=== PATIENT | male | born 1945 | race Caucasian/White ===

== ENCOUNTER 2016-09-20 08:15 | Outpatient (CLI) | payer MEDICARE, OTHER | END 2016-09-20 08:16 | disposition home or self-care (01) | DX: E78.2 Mixed hyperlipidemia (principal); G40.309 Generalized idiopathic epilepsy and epileptic syndromes, not intractable, without status epilepticus; Z79.899 Other long term (current) drug therapy ==

== ENCOUNTER 2017-12-02 08:00 | Outpatient (CLI) | payer MEDICARE, OTHER ==
[2017-12-02 12:51] LABS: BASOPHILS # (AUTO) 0.1 10^3/uL (0.0-0.1); BASOPHILS % (AUTO) 2.2 %; EOSINOPHILS # (AUTO) 0.2 10^3/uL (0.0-0.7); EOSINOPHILS % (AUTO) 6.2 %; HGB - HEMOGLOBIN 14.4 g/dL (14.0-18.0); LYMPHOCYTES # (AUTO) 0.9 10^3/uL (1.5-3.5); LYMPHOCYTES % (AUTO) 22.5 %; MEAN CORPUSCULAR HEMOGLOBIN 30.9 pg (27.0-31.0); MEAN PLATELET VOLUME 8.9 fL (7.4-11.4); MONOCYTES # (AUTO) 0.4 10^3/uL (0.0-1.0); MONOCYTES % (AUTO) 10.5 %; NEUTROPHILS # (AUTO) 2.3 10^3/uL (1.5-6.6); NEUTROPHILS % (AUTO) 58.6 %; PLT - PLATELET COUNT 199 10^3/uL (130-450); RED BLOOD COUNT 4.67 10^6/uL (4.70-6.10); RED CELL DISTRIBUTION WIDTH 12.1 % (12.0-15.0); WHITE BLOOD COUNT 3.9 x10^3/uL (4.8-10.8)
[2017-12-02 13:14] LABS: ALBUMIN 4.3 g/dL (3.2-5.5); ALBUMIN/GLOBULIN RATIO 1.6 (1.0-2.2); ALKALINE PHOSPHATASE 75 IU/L (42-121); ALT ALANINE AMINOTRANSFERASE 20 IU/L (10-60); AST ASPARTATE AMINOTRANSFERASE 18 IU/L (10-42); BILIRUBIN,TOTAL 0.7 mg/dL (0.2-1.0); BUN - BLOOD UREA NITROGEN 18 mg/dL (6-20); CARBON DIOXIDE - CO2 29 mmol/L (21-32); CHLORIDE 105 mmol/L (101-111); CHOL/HDL RATIO 5.2 (<5.0); CHOLESTEROL 173 mg/dL; CREATININE 0.8 mg/dL (0.6-1.2); GFR - MDRD 94 (>89); GLUCOSE 95 mg/dL (70-100); HDL CHOLESTEROL 33 mg/dL; LDL CHOLESTEROL,CALCULATED 98 mg/dL; SODIUM 139 mmol/L (135-145); VLDL CHOLESTEROL 42 mg/dL
== END 2017-12-02 08:01 | disposition home or self-care (01) ==
LOC: LAB.R 08:00
PROVIDERS: ATTEND Internal Medicine
DX: R56.9 Unspecified convulsions (principal); E78.5 Hyperlipidemia, unspecified; M19.90 Unspecified osteoarthritis, unspecified site; D33.3 Benign neoplasm of cranial nerves; Z12.5 Encounter for screening for malignant neoplasm of prostate
CPT/HCPCS: 80053; 80061; 85025; G0103; 83721; 84153

== ENCOUNTER 2018-12-29 08:06 | Outpatient (CLI) | payer MEDICARE, OTHER ==
[2018-12-29 08:45] LABS: BASOPHILS # (AUTO) 0.1 10^3/uL (0.0-0.1); BASOPHILS % (AUTO) 1.6 %; EOSINOPHILS # (AUTO) 0.2 10^3/uL (0.0-0.7); EOSINOPHILS % (AUTO) 5.1 %; LYMPHOCYTES # (AUTO) 0.9 10^3/uL (1.5-3.5); LYMPHOCYTES % (AUTO) 23.3 %; MEAN CORPUSCULAR HEMOGLOBIN 30.1 pg (27.0-31.0); MEAN CORPUSCULAR VOLUME 91.2 fL (80.0-94.0); MEAN PLATELET VOLUME 8.2 fL (7.4-11.4); MONOCYTES # (AUTO) 0.3 10^3/uL (0.0-1.0); MONOCYTES % (AUTO) 8.6 %; NEUTROPHILS # (AUTO) 2.4 10^3/uL (1.5-6.6); NEUTROPHILS % (AUTO) 61.4 %; PLT - PLATELET COUNT 190 10^3/uL (130-450); RED BLOOD COUNT 4.64 10^6/uL (4.70-6.10); RED CELL DISTRIBUTION WIDTH 12.8 % (12.0-15.0); WHITE BLOOD COUNT 3.9 x10^3/uL (4.8-10.8)
[2018-12-29 09:02] LABS: ALBUMIN 4.2 g/dL (3.2-5.5); ALBUMIN/GLOBULIN RATIO 1.4 (1.0-2.2); ALKALINE PHOSPHATASE 69 IU/L (42-121); ALT ALANINE AMINOTRANSFERASE 19 IU/L (10-60); AST ASPARTATE AMINOTRANSFERASE 15 IU/L (10-42); BILIRUBIN,TOTAL 0.7 mg/dL (0.2-1.0); BUN - BLOOD UREA NITROGEN 18 mg/dL (6-20); CALCIUM 9.1 mg/dL (8.5-10.3); CARBON DIOXIDE - CO2 27 mmol/L (21-32); CHLORIDE 105 mmol/L (101-111); CHOL/HDL RATIO 4.3 (<5.0); CHOLESTEROL 168 mg/dL; CREATININE 0.9 mg/dL (0.6-1.2); GFR - MDRD 82 (>89); GLUCOSE 109 mg/dL (70-100); HDL CHOLESTEROL 39 mg/dL; LDL CHOLESTEROL,CALCULATED 88 mg/dL; LDL/HDL RATIO 2.3 (<3.6); SODIUM 141 mmol/L (135-145); TOTAL PROTEIN 7.1 g/dL (6.7-8.2); VLDL CHOLESTEROL 41 mg/dL
== END 2018-12-29 08:07 | disposition home or self-care (01) ==
LOC: LAB 08:06
PROVIDERS: ATTEND Family Medicine
DX: R56.9 Unspecified convulsions (principal); D33.3 Benign neoplasm of cranial nerves
CPT/HCPCS: 36415; 80053; 80061; 83721; 85025

== ENCOUNTER 2021-04-03 08:04 | Outpatient (CLI) | payer MEDICARE, OTHER ==
[2021-04-03 08:30] LABS: BASOPHILS # (AUTO) 0.1 10^3/uL (0.0-0.1); EOSINOPHILS # (AUTO) 0.2 10^3/uL (0.0-0.7); EOSINOPHILS % (AUTO) 4.3 %; HCT - HEMATOCRIT 45.4 % (42.0-52.0); HGB - HEMOGLOBIN 14.5 g/dL (14.0-18.0); LYMPHOCYTES % (AUTO) 25.1 %; MEAN CORPUSCULAR HEMOGLOBIN 30.6 pg (27.0-31.0); MEAN CORPUSCULAR HGB CONC 31.9 g/dL (32.0-36.0); MEAN CORPUSCULAR VOLUME 95.8 fL (80.0-94.0); MEAN PLATELET VOLUME 10.1 fL (7.4-11.4); MONOCYTES # (AUTO) 0.4 10^3/uL (0.0-1.0); MONOCYTES % (AUTO) 10.8 %; NEUTROPHILS # (AUTO) 2.3 10^3/uL (1.5-6.6); NEUTROPHILS % (AUTO) 56.8 %; PLT - PLATELET COUNT 209 10^3/uL (130-450); RED BLOOD COUNT 4.74 10^6/uL (4.70-6.10); RED CELL DISTRIBUTION WIDTH 11.6 % (12.0-15.0)
[2021-04-03 08:47] LABS: ALBUMIN 4.3 g/dL (3.2-5.5); ALBUMIN/GLOBULIN RATIO 1.6 (1.0-2.2); ALKALINE PHOSPHATASE 72 IU/L (42-121); ALT ALANINE AMINOTRANSFERASE 19 IU/L (10-60); AST ASPARTATE AMINOTRANSFERASE 15 IU/L (10-42); BILIRUBIN,TOTAL 0.9 mg/dL (0.2-1.0); BUN - BLOOD UREA NITROGEN 17 mg/dL (6-20); CALCIUM 9.2 mg/dL (8.5-10.3); CARBON DIOXIDE - CO2 28 mmol/L (21-32); CHLORIDE 105 mmol/L (101-111); CHOL/HDL RATIO 5.4 (<5.0); CHOLESTEROL 172 mg/dL; GFR - MDRD 72 (>89); GLUCOSE 110 mg/dL (70-100); HDL CHOLESTEROL 32 mg/dL; LDL CHOLESTEROL,CALCULATED 94 mg/dL; LDL/HDL RATIO 2.9 (<3.6); POTASSIUM 4.9 mmol/L (3.5-5.0); SODIUM 142 mmol/L (135-145); TRIGLYCERIDES 232 mg/dL; VLDL CHOLESTEROL 46 mg/dL
[2021-04-03 08:58] LABS: THYROID STIMULATING HORMONE 1.96 uIU/mL (0.34-5.60)
[2021-04-03 10:42] LABS: ESTIMATED AVERAGE GLUCOSE 100 mg/dL (70-100); HEMOGLOBIN A1c% 5.1 % (4.27-6.07)
== END 2021-04-03 08:05 | disposition home or self-care (01) ==
LOC: LAB 08:04
PROVIDERS: ATTEND Family Medicine
DX: G40.909 Epilepsy, unspecified, not intractable, without status epilepticus (principal); E78.5 Hyperlipidemia, unspecified; R73.9 Hyperglycemia, unspecified
CPT/HCPCS: 36415; 80053; 80061; 83036; 83721; 84443; 85025

== ENCOUNTER 2023-03-12 08:04 | Outpatient (CLI) | payer MEDICARE, OTHER ==
[2023-03-12 08:21] LABS: BASOPHILS # (AUTO) 0.1 10^3/uL (0.0-0.1); BASOPHILS % (AUTO) 1.3 %; EOSINOPHILS # (AUTO) 0.2 10^3/uL (0.0-0.7); EOSINOPHILS % (AUTO) 3.2 %; HCT - HEMATOCRIT 43.2 % (42.0-52.0); HGB - HEMOGLOBIN 13.9 g/dL (14.0-18.0); LYMPHOCYTES % (AUTO) 21.7 %; MEAN CORPUSCULAR HEMOGLOBIN 30.2 pg (27.0-31.0); MEAN CORPUSCULAR HGB CONC 32.2 g/dL (32.0-36.0); MEAN CORPUSCULAR VOLUME 93.9 fL (80.0-94.0); MONOCYTES # (AUTO) 0.4 10^3/uL (0.0-1.0); MONOCYTES % (AUTO) 9.1 %; NEUTROPHILS % (AUTO) 64.3 %; PLT - PLATELET COUNT 217 10^3/uL (130-450); RED CELL DISTRIBUTION WIDTH 11.8 % (12.0-15.0); WHITE BLOOD COUNT 4.7 x10^3/uL (4.8-10.8)
[2023-03-12 08:40] LABS: ALBUMIN 4.2 g/dL (3.2-5.5); ALBUMIN/GLOBULIN RATIO 1.8 (1.0-2.2); ALKALINE PHOSPHATASE 74 IU/L (42-121); ALT ALANINE AMINOTRANSFERASE 11 IU/L (10-60); AST ASPARTATE AMINOTRANSFERASE 10 IU/L (10-42); BILIRUBIN,TOTAL 0.5 mg/dL (0.2-1.0); BUN - BLOOD UREA NITROGEN 16 mg/dL (6-20); CALCIUM 9.4 mg/dL (8.5-10.3); CARBON DIOXIDE - CO2 31 mmol/L (21-32); CHLORIDE 107 mmol/L (101-111); CHOL/HDL RATIO 4.8 (<5.0); CHOLESTEROL 152 mg/dL; CREATININE 0.9 mg/dL (0.6-1.3); GFR - MDRD 81 (>89); GLUCOSE 108 mg/dL (74-104); HDL CHOLESTEROL 32 mg/dL; LDL CHOLESTEROL,CALCULATED 79 mg/dL; LDL/HDL RATIO 2.5 (<3.6); POTASSIUM 4.1 mmol/L (3.5-4.5); SODIUM 141 mmol/L (135-145); TOTAL PROTEIN 6.6 g/dL (6.4-8.9); TRIGLYCERIDES 205 mg/dL (48-352); VLDL CHOLESTEROL 41 mg/dL
[2023-03-12 08:55] LABS: THYROID STIMULATING HORMONE 1.81 uIU/mL (0.34-5.60)
[2023-03-12 09:08] LABS: ESTIMATED AVERAGE GLUCOSE 97 mg/dL (70-100)
== END 2023-03-12 08:05 | disposition home or self-care (01) ==
LOC: LAB 08:04
PROVIDERS: ATTEND Family Medicine
DX: R53.83 Other fatigue (principal); Z12.5 Encounter for screening for malignant neoplasm of prostate; N52.9 Male erectile dysfunction, unspecified; R73.9 Hyperglycemia, unspecified; G40.909 Epilepsy, unspecified, not intractable, without status epilepticus
CPT/HCPCS: 36415; 80053; 80061; 83036; 84443; 85025; G0103; 83721; 84153

== ENCOUNTER 2024-07-29 10:34 | Inpatient (IN) ==
[2024-07-29 11:02] LABS: BASOPHILS # (AUTO) 0.1 10^3/uL (0.0-0.1); BASOPHILS % (AUTO) 0.4 %; HCT - HEMATOCRIT 39.7 % (42.0-52.0); HGB - HEMOGLOBIN 12.5 g/dL (14.0-18.0); LYMPHOCYTES # (AUTO) 0.4 10^3/uL (1.5-3.5); LYMPHOCYTES % (AUTO) 2.4 %; MEAN CORPUSCULAR HEMOGLOBIN 29.6 pg (27.0-31.0); MEAN CORPUSCULAR HGB CONC 31.5 g/dL (32.0-36.0); MEAN CORPUSCULAR VOLUME 94.1 fL (80.0-94.0); MEAN PLATELET VOLUME 9.9 fL (7.4-11.4); MONOCYTES # (AUTO) 0.7 10^3/uL (0.0-1.0); MONOCYTES % (AUTO) 4.8 %; NEUTROPHILS # (AUTO) 13.4 10^3/uL (1.5-6.6); NEUTROPHILS % (AUTO) 91.1 %; PLT - PLATELET COUNT 232 10^3/uL (130-450); RED BLOOD COUNT 4.22 10^6/uL (4.70-6.10); RED CELL DISTRIBUTION WIDTH 12.3 % (12.0-15.0); WHITE BLOOD COUNT 14.7 x10^3/uL (4.8-10.8)
[2024-07-29] MEDS: IBUPROFEN 600 MG TABLET PO STA (11:10)
[2024-07-29] MEDS: ACETAMINOPHEN 500 MG TABLET PO STA (11:10)
[2024-07-29] MEDS: SODIUM CHLORIDE 0.9% 1,000 ML IV STA ×2 (11:13→14:53)
[2024-07-29 11:17] LABS: ALBUMIN 3.5 g/dL (3.2-5.5); ALBUMIN/GLOBULIN RATIO 1.3 (1.0-2.2); BILIRUBIN,TOTAL 1.8 mg/dL (0.2-1.0); CALCIUM 8.6 mg/dL (8.5-10.3); POTASSIUM 3.6 mmol/L (3.5-4.5); TOTAL PROTEIN 6.2 g/dL (6.4-8.9)
--- NOTE | 2024-07-29 11:34 | XRAY Report ---
PROCEDURE: XR Chest 1V INDICATIONS: pneumonia, feels worse TECHNIQUE: One view of the chest was acquired. COMPARISON: Chest x-ray dated 07/27/2024, CT chest dated 07/27/2024. FINDINGS: Surgical changes and devices: None. Lungs and pleura: Right apical lung mass. Mild volume loss, right hemithorax, as before, with medias tinal shift to the right. Elevated left hemidiaphragm with left basilar atelectasis versus scarring. Mediastinum: Right hilar adenopathy. Heart size is normal. Bones and chest wall: No suspicious bony lesions. Overlying soft tissues appear unremarkable. IMPRESSION: 1. Known right upper lobe lung mass and right hilar adenopathy. 2. No gross infiltrates. 3. Atelectasis versus scarring, left lung base. Reviewed by: Zafar Monk MD on 07/29/2024 11:33 AM PST Approved by: Zafar Monk MD on 07/29/2024 11:33 AM PST Station ID: [id number]
--- NOTE | 2024-07-29 14:51 | Ultrasound Report ---
PROCEDURE: US Abdomen Limited INDICATIONS: Elevated LFTs, lung CA TECHNIQUE: Real-time focused scanning was performed of the abdomen, with image documentation. COMPARISONS: None. FINDINGS: Liver: Liver is enlarged measuring 18.4 cm. There is a hyperechoic lesion in the right hepatic lobe measuring 2.6 x 2.3 x 1.7 cm.. Gallbladder: Gallstones measuring up to 9 mm at the gallbladder neck. No gallbladder wall thickening or pericholecystic fluid. Biliary ducts: Intrahepatic bile ducts are non-dilated. Extrahepatic bile duct caliber measures 7 m m. Normal is 6-7 mm or less in diameter, or 10 mm or less post-cholecystectomy. Pancreas: Visualized portions of the pancreas are sonographically normal. Body and tail are not well seen. Right kidney: Normal in size and echotexture. Right kidney measures 12.1 cm long. No hydronephrosis or nephrolithiasis. No solid masses. No complex renal cystic lesions which require follow-up. IVC: Intrahepatic inferior vena cava is patent. Miscellaneous: No free abdominal fluid. IMPRESSION: 1.Cholelithiasis without sonographic evidence of acute cholecystitis. 2.Hepatomegaly. Hyperechoic lesion within the right hepatic lobe measuring 2.6 cm, may represent a he mangioma. Recommend follow-up ultrasound in 6 months to assess stability. Reviewed by: Brandon Rodarte MD on 07/29/2024 2:50 PM PST Approved by: Brandon Rodarte MD on 07/29/2024 2:50 PM PST Station ID: [id number]
--- NOTE | 2024-07-29 15:16 | ED Physician Documentation ---
History of Present Illness Stated complaint Stated Complaint: WEAKNESS/FEVER Chief complaint Chief Complaint: Fever History obtained from History obtained from: Patient, Family and EMS Additonal information Additional information: The patient returns to the emergency department via EMS for chief complaint of continuing fevers and ongoing generalized weakness which seems to be getting worse. The patient was here on July 27 and for respiratory symptoms, fever, confusion, and weakness and due to bed status, remained in the emergency department for 2 days. He had an extensive workup including blood cultures, respiratory PCR panel, chest x-ray, head CT, chest CT, and urinalysis during that time. He had been found to be hypoxic and the x-ray and chest CT demonstrated a right lung mass which is a new diagnosis for the patient. He was thought to possibly have pneumonia on his initial chest x-ray and was started on Rocephin and Zithromax for this. His blood culture final results turned out to be negative. The patient had a white blood cell count of 11 on initial presentation but this did normalize throughout his stay. He was ultimately unable to be given in bed due to high census within the hospital and multiple orders in the emergency department, so due to his improved status, he was discharged home on supplemental oxygen is on an as-needed basis with plans to follow-up for biopsy of his lung mass. The patient's states that she has noticed that the patient is continuing to spike fevers of as high as 102 today and she is concerned that the temperature is dangerously high. She also is concerned because the patient cannot get himself up to use the bathroom. The patient has not had any abdominal complaints. No pain or vomiting. The patient states he has been using oxygen at home and the medics state that when they got there the patient was 90% on 2 L. They bumped him up to 4 L and his sats came up to 94%. The patient denies any other complaints at this time. Meds/Allgy Home Medications Ambulatory Orders Medication Instructions Recorded Confirmed pravastatin 40 mg tablet 40 mg PO DAILY 07/06/14 07/29/24 aspirin 81 mg tablet,delayed 81 mg PO DAILY 08/03/14 07/29/24 release (Aspir-) levetiracetam 1,000 mg tablet See Rx Instructions .Route 06/19/24 07/29/24 .COMPLEX #180 tabs tadalafil 2.5 mg tablet See Rx Instructions .Route 07/09/24 07/29/24 .COMPLEX #20 tabs cholecalciferol (vitamin D3) 25 25 mcg PO QDAY 07/13/24 07/29/24 mcg (1,000 unit) capsule gabapentin 300 mg capsule 300 mg PO BID 07/13/24 07/29/24 glucosamine HCl 1,500 mg tablet 1,500 mg PO BID 07/13/24 07/29/24 multivitamin 1 tab PO QDAY 07/13/24 07/29/24 timolol maleate 0.5 % once daily 1 drp ophthalmic (eye) BID 07/13/24 07/29/24 eye drops loratadine 10 mg capsule (Allergy 10 mg PO DAILY PRN allergic 07/27/24 07/29/24 Relief (loratadine)) symptoms naproxen sodium 220 mg tablet 220 mg PO TID 07/27/24 07/29/24 (Aleve) albuterol sulfate 90 mcg/actuation 2 puff inhalation QID #8.5 grams 07/28/24 07/29/24 aerosol inhaler (Ventolin HFA) azithromycin 250 mg tablet 250 mg PO DAILY 4 days #4 tabs 07/28/24 07/29/24 (Zithromax) cephalexin 500 mg tablet 500 mg PO Q8H 5 days #15 tabs 07/28/24 07/29/24 dexamethasone 4 mg tablet 4 mg PO DAILY #7 tabs 07/28/24 07/29/24 Allergies Allergies Allergy/AdvReac Type Severity Reaction Status Date / Time No Known Drug Allergies Allergy Verified 07/29/24 10:45 [facility] Medical History Medical History (Updated 07/29/24 @ 15:38 by Daina Ansari MD) Acoustic neuroma Stern's palsy Polyp of colon COVID-19 Seizures Benign neoplasm of facial nerve High cholesterol HTN (hypertension) Family History Family History (Updated 07/13/24 @ 10:49 by La Nena Walden LPN) Other Family history unknown Social History Social History Smoking Status: Never smoker Second hand tobacco smoke exposure: Yes Do you dip or chew tobacco?: No Do you vape?: No Patient requests smoking cessation consult: No Initiate information on smoking cessation: No Living arrangement: At home Marital Status: Living Condition: With spouse/s.o. 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 HENMT normocephalic, head/scalp atraumatic, external nose normal and oral mucous membranes normal Eyes EOMs intact bilaterally Neck/C-Spine visual inspection normal and supple Respiratory breath sounds equal bilaterally and normal respiratory effort Bilateral crackles. No wheezes. Cardiovascular normal heart rate noted, regular rhythm noted and no edema Gastrointestinal abdomen normal to inspection, abdomen soft to palpation, nontender to palpation and nondistended Genitourinary no CVA tenderness Extremities normal to inspection Neurology Awake, mildly drowsy, but appropriate. Psychiatry mental status grossly normal Skin skin color normal Skin is warm and moist. Results Vitals Vitals: Vital Signs - 24 hr 07/29/24 10:42 07/29/24 11:10 07/29/24 11:10 Temperature 36.5 C Temperature Source Temporal Artery Scan Pulse Rate 98 Respiratory Rate 22 Blood Pressure 115/73 O2 Saturation 93 O2 Source Nasal cannula If not protocol: Oxygen Flow, liters/minute 2 Pain Intensity 0 0 0 07/29/24 12:25 07/29/24 14:15 Temperature 36.7 C 35.8 C L Temperature Source Oral Temporal Artery Scan Pulse Rate 82 74 Respiratory Rate 24 Blood Pressure 100/70 90/65 O2 Saturation 94 92 O2 Source Nasal cannula Nasal cannula If not protocol: Oxygen Flow, liters/minute 4 4 Pain Intensity 4 Oxygen O2 Source Nasal cannula Labs Labs: Laboratory Tests 07/29/24 10:56 WBC 14.7 H RBC 4.22 L Hgb 12.5 L Hct 39.7 L MCV 94.1 H MCH 29.6 MCHC 31.5 L RDW 12.3 Plt Count 232 MPV 9.9 Neut # (Auto) 13.4 H Lymph # (Auto) 0.4 L [place] # (Auto) 0.7 Eos # (Auto) 0.0 Baso # (Auto) 0.1 Absolute Nucleated RBC 0.00 Nucleated RBC % 0.0 Sodium 138 Potassium 3.6 Chloride 103 Carbon Dioxide 27 Anion Gap 8.0 BUN 25 H Creatinine 1.0 Estimated GFR (MDRD) 72 L Glucose 167 H Lactic Acid 1.7 Calcium 8.6 Total Bilirubin 1.8 H AST 71 H ALT 161 H Alkaline Phosphatase 215 H Total Protein 6.2 L Albumin 3.5 Globulin 2.7 Albumin/Globulin Ratio 1.3 Lipase 22 PD Medical Decision Making ED course Complexity details: reviewed old records, reviewed results, re-evaluated patient, considered differential and d/w patient ED course: I reviewed the patient's Stents a workup from the last couple days that he was here, and discussed with the patient that I would repeat his x-ray and labs. The patient was found to have a newly reelevated white blood cell count at 14.7. He had had a normal total bilirubin on his last draw yesterday but bili was up to 1.8 today which was elevated. He had had mild LFT elevations including both AST and ALT and alk phos, and these were worse today. As such, given that the x-ray did not show any worsening findings in the lungs and his final blood cultures were negative, I did go ahead and order an ultrasound of the right upper quadrant to assess his gallbladder. The patient was found to have gallstones in the neck of the gallbladder but no evidence of cholecystitis. I discussed the case with Dr. Trejo to see if he had any further concern regarding the gallbladder, given the increasing LFTs and newly elevated white blood cell count and the presence of gallstones, but negative findings for cholecystitis. The patient was given a total of 2 L of 0.9 normal saline in the emergency department and his blood pressure did gradually trend down a bit into the 90s over 60s during his stay in the ED after initially presenting normal. His lactic acid level was normal today, but there is some concern for impending sepsis. I will sign the patient out to Dr. Trinidad at change of shift, pending Dr. Trejo's evaluation. The expectations the patient will probably either be admitted to the hospital here or he will be transferred if Dr. Trejo feels the patient needs a HIDA scan or other more specialized intervention. Discharge Plan Discharge Condition: Serious Clinical Impression: Lung mass, Hypoxia, Gallstones, Transaminitis Fever Qualifiers: Fever type: unspecified Qualified Code(s): R50.9 - Fever, unspecified Prescriptions: No Action levetiracetam 1,000 mg tablet See Rx Instructions .ROUTE .COMPLEX Qty: 180 0RF Dose Instruction: TAKE ONE (1) TABLET BY MOUTH TWICE A DAY Rx Instructions: TAKE ONE (1) TABLET BY MOUTH TWICE A DAY tadalafil 2.5 mg tablet See Rx Instructions .ROUTE .COMPLEX Qty: 20 0RF Dose Instruction: TAKE ONE OR TWO TABLETS BY MOUTH DAILY NEEDED; TAKE 2ND TABLET 1 HOUR AFTER THE 1ST TABLET IF NOT ENOUGH EFFECT Rx Instructions: TAKE ONE OR TWO TABLETS BY MOUTH DAILY NEEDED; TAKE 2ND TABLET 1 HOUR AFTER THE 1ST TABLET IF NOT ENOUGH EFFECT pravastatin 40 MG tablet 40 mg PO DAILY aspirin [Aspir-81] 81 MG tablet,delayed release (DR/EC) 81 mg PO DAILY Allergy Relief (loratadine) 10 mg capsule 10 mg PO DAILY PRN (Reason: allergic symptoms) naproxen sodium [Aleve] 220 mg tablet 220 mg PO TID dexamethasone 4 mg tablet 4 mg PO DAILY Qty: 7 0RF albuterol sulfate [Ventolin HFA] 90 mcg/actuation HFA aerosol inhaler 2 puff inhalation QID Qty: 8.5 2RF azithromycin [Zithromax] 250 mg tablet 250 mg PO DAILY 4 Days Qty: 4 0RF Rx Instructions: start on day 2 of therapy cephalexin 500 mg tablet 500 mg PO Q8H 5 Days Qty: 15 0RF timolol maleate 0.5 % drops, once daily 1 drp ophthalmic (eye) BID multivitamin Tablet 1 tab PO QDAY cholecalciferol (vitamin D3) 25 mcg (1,000 unit) capsule 25 mcg PO QDAY glucosamine HCl 1,500 mg tablet 1,500 mg PO BID Rx Instructions: administer with a meal gabapentin 300 mg capsule 300 mg PO BID Print Language: Guatemalan Stand Alone Forms: PCP List
--- NOTE | 2024-07-29 16:44 | ED Physician Documentation ---
ED Addendum Addendum Addendum: Care from Dr. Ansari at 3 PM shift change. Briefly this is an 79-year-old gentleman with history of very well-controlled seizure disorder, last seizure decades ago, history of acoustic neuroma and he has a implanted bone-conduction hearing aid type thing. He started to get sick about a week ago with fevers, weakness, listing to 1 side, mild confusion. 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 There were no beds in the hospital and he boarded in the emergency department and subsequently was sent home on oxygen. Returns with fevers, up to 102, listing to 1 side, and very weak. He now has an elevated white count, soft blood pressures at 90/65 despite 2 L of fluid. He has some transaminitis and a right upper quadrant ultrasound was done with gallstones. Our on-call surgeon, Dr Trejo came and saw him and we discussed the findings. He does not feel that his gallbladder is the culprit based on his exam and review of the diagnostics at this time. Previously blood cultures and viral respiratory panel were negative. He does have SIRS criteria without sepsis (no source). His lactate was negative. Call to Dr. Kay for admission at 4:44 PM. The patient and family think that his hearing implant is MRI compatible and I asked them to bring in the card from home to confirm. Discharge Plan Discharge Patient Disposition: [facility] DC/Xfer Condition: Serious Clinical Impression: Lung mass, Hypoxia, Gallstones, Transaminitis Fever Qualifiers: Fever type: unspecified Qualified Code(s): R50.9 - Fever, unspecified Prescriptions: No Action levetiracetam 1,000 mg tablet See Rx Instructions .ROUTE .COMPLEX Qty: 180 0RF Dose Instruction: TAKE ONE (1) TABLET BY MOUTH TWICE A DAY Rx Instructions: TAKE ONE (1) TABLET BY MOUTH TWICE A DAY tadalafil 2.5 mg tablet See Rx Instructions .ROUTE .COMPLEX Qty: 20 0RF Dose Instruction: TAKE ONE OR TWO TABLETS BY MOUTH DAILY NEEDED; TAKE 2ND TABLET 1 HOUR AFTER THE 1ST TABLET IF NOT ENOUGH EFFECT Rx Instructions: TAKE ONE OR TWO TABLETS BY MOUTH DAILY NEEDED; TAKE 2ND TABLET 1 HOUR AFTER THE 1ST TABLET IF NOT ENOUGH EFFECT pravastatin 40 MG tablet 40 mg PO DAILY aspirin [Aspir-81] 81 MG tablet,delayed release (DR/EC) 81 mg PO DAILY Allergy Relief (loratadine) 10 mg capsule 10 mg PO DAILY PRN (Reason: allergic symptoms) naproxen sodium [Aleve] 220 mg tablet 220 mg PO TID dexamethasone 4 mg tablet 4 mg PO DAILY Qty: 7 0RF albuterol sulfate [Ventolin HFA] 90 mcg/actuation HFA aerosol inhaler 2 puff inhalation QID Qty: 8.5 2RF azithromycin [Zithromax] 250 mg tablet 250 mg PO DAILY 4 Days Qty: 4 0RF Rx Instructions: start on day 2 of therapy cephalexin 500 mg tablet 500 mg PO Q8H 5 Days Qty: 15 0RF timolol maleate 0.5 % drops, once daily 1 drp ophthalmic (eye) BID multivitamin Tablet 1 tab PO QDAY cholecalciferol (vitamin D3) 25 mcg (1,000 unit) capsule 25 mcg PO QDAY glucosamine HCl 1,500 mg tablet 1,500 mg PO BID Rx Instructions: administer with a meal gabapentin 300 mg capsule 300 mg PO BID Print Language: Ukrainian Stand Alone Forms: PCP List
--- NOTE | 2024-07-29 16:54 | PROVIDER PROGRESS NOTE ---
Progress Note Progress Note Progress Note: General Surgery Brief ED Note I was asked by Daina Ansari to offer an opinion regarding this patient's elevated LFT's and the presence of gallstones on US. He denies abdominal pain, bloating or nausea. He has never had fatty food intolerance. He has no abdominal pain in any quadrant and the RUQ is soft, without a palpable mass, and without tenderness to deep palpation. His US shows a few dependent gallstones in an otherwise normal gallbladder and there is no extra-hepatic ductal dilation, gallbladder distension, increase in wall thickness, or pericholecystic fluid. There is also no evidence of gallbladder distension on the recent CT chest exam. His T Bili went from 1.5 -> 1.8 over 2 days with similar small increases above normal in his other LFT's. At this point in time there is no evidence of acute cholecystitis or ascending cholangitis. The General Surgery Service will be happy to re-evaluate the patient if he is admitted to this facility and his condition changes to support biliary tract disease. Mati Trejo MD, [facility] General Surgery Service
--- NOTE | 2024-07-29 17:42 | PHARMACY PROGRESS NOTE ---
Best Possible Medication History Admit Date and Time: 07/29/24 1715 Home Medications Medication Instructions Recorded Confirmed Type pravastatin 40 mg tablet 40 mg PO DAILY 07/06/14 07/29/24 History aspirin 81 mg tablet,delayed 81 mg PO DAILY 08/03/14 07/29/24 History release (Aspir-) levetiracetam 1,000 mg tablet See Rx Instructions .Route 06/19/24 07/29/24 Rx .COMPLEX #180 tabs tadalafil 2.5 mg tablet See Rx Instructions .Route 07/09/24 07/29/24 Rx .COMPLEX #20 tabs cholecalciferol (vitamin D3) 25 25 mcg PO QDAY 07/13/24 07/29/24 History mcg (1,000 unit) capsule gabapentin 300 mg capsule 300 mg PO BID 07/13/24 07/29/24 History glucosamine HCl 1,500 mg tablet 1,500 mg PO BID 07/13/24 07/29/24 History multivitamin 1 tab PO QDAY 07/13/24 07/29/24 History timolol maleate 0.5 % once daily 1 drp ophthalmic (eye) BID 07/13/24 07/29/24 History eye drops loratadine 10 mg capsule (Allergy 10 mg PO DAILY PRN allergic 07/27/24 07/29/24 History Relief (loratadine)) symptoms naproxen sodium 220 mg tablet 220 mg PO TID 07/27/24 07/29/24 History (Aleve) albuterol sulfate 90 mcg/actuation 2 puff inhalation QID #8.5 grams 07/28/24 07/29/24 Rx aerosol inhaler (Ventolin HFA) azithromycin 250 mg tablet 250 mg PO DAILY 4 days #4 tabs 07/28/24 07/29/24 Rx (Zithromax) cephalexin 500 mg tablet 500 mg PO Q8H 5 days #15 tabs 07/28/24 07/29/24 Rx dexamethasone 4 mg tablet 4 mg PO DAILY #7 tabs 07/28/24 07/29/24 Rx Processed by: Pharmacy (Medication reconciliation completed 2 days ago, called to confirm new scripts had been picked up from retail.) Medications reviewed in ED?: Yes Medication History completed: Yes Secondary Source(s): Pharmacy records, Insurance records and Previous admit records [facility] Statement: As the person ultimately responsible for medication therapy, providers are able to order a medication from an existing home medication list in [facility] via the "Reconcile Routine" prior to Confirmation of that medication by academic support coordinator. Such practice is discouraged except when the physician, in their clinical judgment, deems that a medical need exists for a medication without regard to p revious use.
[2024-07-29] MEDS ORDERED: ONDANSETRON ODT 4 MG TABLET TL PRN (18:13)
[2024-07-29] MEDS ORDERED: ACETAMINOPHEN 325 MG TABLET PO PRN (18:13)
[2024-07-29] MEDS ORDERED: ONDANSETRON 4 MG/2 ML VIAL IVP PRN (18:13)
[2024-07-29] MEDS ORDERED: HYDROcod/ACETAM 5/325 MG TABLET PO PRN (18:13)
--- NOTE | 2024-07-29 19:06 | HISTORY & PHYSICAL EXAMINATION ---
Chief Complaint <Ximena Butcher - Last Filed: 07/30/24 15:02> Chief Complaint Chief Complaint: Generalized weakness, ataxia, generalized malaise, intermittent confusion History of Present Illness <Ximena Butcher - Last Filed: 07/30/24 15:02> Admitted From Admitted From:: Emergency Room History of Present Illness HPI Comment/Other: Patient has been experiencing generalized weakness, ataxia, generalized malaise, and brain fog. The patient describes the brain fog as word searching and losing his train of thought, which he has been noticing since 06/2024. He does not report any confusion or disorientation. He reports his ataxia is hard to describe, but feels "neurological" and like he is favoring his right side during movement. He reports this has caused some new loss of balance that has gradually been worsening. Recently, he tripped coming up the steps and caught himself. He reports he has lost his balance several other times but was able to catch himself without falling to the ground. 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 the tumor was monitored for years and reached a stable size without growth. Due to the stability of the tumor it has not been followed for the last 8 years. His reports concerns the tumor is growing again. It is worth noting the patient was diagnosed with a pinched nerve in his left shoulder in 05/2024 and placed on gabapentin and methocarbamol. The patient does not note any major side effects from these medications. Prior to this week, the patient was walking approximately 2 miles per day with his , driving, and able to complete activities of daily living without assistance. The patient denies any recent infection, foreign travel, insect bites, rash, recreational or illegal drug use, exposure to prostitution, or history of STD/STIs. Meds/Allgy <Ximena Butcher - Last Filed: 07/30/24 15:02> Home Medications Ambulatory Orders Medication Instructions Recorded Confirmed pravastatin 40 mg tablet 40 mg PO DAILY 07/06/14 07/29/24 aspirin 81 mg tablet,delayed 81 mg PO DAILY 08/03/14 07/29/24 release (Aspir-) levetiracetam 1,000 mg tablet See Rx Instructions .Route 06/19/24 07/29/24 .COMPLEX #180 tabs tadalafil 2.5 mg tablet See Rx Instructions .Route 07/09/24 07/29/24 .COMPLEX #20 tabs cholecalciferol (vitamin D3) 25 25 mcg PO QDAY 07/13/24 07/29/24 mcg (1,000 unit) capsule gabapentin 300 mg capsule 300 mg PO BID 07/13/24 07/29/24 glucosamine HCl 1,500 mg tablet 1,500 mg PO BID 07/13/24 07/29/24 multivitamin 1 tab PO QDAY 07/13/24 07/29/24 timolol maleate 0.5 % once daily 1 drp ophthalmic (eye) BID 07/13/24 07/29/24 eye drops loratadine 10 mg capsule (Allergy 10 mg PO DAILY PRN allergic 07/27/24 07/29/24 Relief (loratadine)) symptoms naproxen sodium 220 mg tablet 220 mg PO TID 07/27/24 07/29/24 (Aleve) albuterol sulfate 90 mcg/actuation 2 puff inhalation QID #8.5 grams 07/28/24 07/29/24 aerosol inhaler (Ventolin HFA) azithromycin 250 mg tablet 250 mg PO DAILY 4 days #4 tabs 07/28/24 07/29/24 (Zithromax) cephalexin 500 mg tablet 500 mg PO Q8H 5 days #15 tabs 07/28/24 07/29/24 dexamethasone 4 mg tablet 4 mg PO DAILY #7 tabs 07/28/24 07/29/24 Allergies Allergies Allergy/AdvReac Type Severity Reaction Status Date / Time No Known Drug Allergies Allergy Verified 07/29/24 10:45 PFSH <Ximena Butcher - Last Filed: 07/30/24 15:02> Medical History Medical History History of nerve impingement Status post placement of bone anchored hearing aid (BAHA) Hay fever Acoustic neuroma Stern's palsy Polyp of colon COVID-19 Seizures Benign neoplasm of facial nerve High cholesterol HTN (hypertension) Surgical History Surgical History (Updated 07/30/24 @ 11:54 by Ximena Butcher) Status post laser cataract surgery of both eyes Hx of tonsillectomy History of wisdom tooth extraction History of facial surgery Family History Family History (Updated 07/30/24 @ 11:59 by Ximena Butcher) Father Heart attack Lung cancer Mother Bowel obstruction CAD (coronary artery disease) Brother Obesity CAD (coronary artery disease) Brother Arth[place] Other Family history unknown Social History Social History Smoking Status: Never smoker Second hand tobacco smoke exposure: Yes Do you dip or chew tobacco?: No Do you vape?: No Patient requests smoking cessation consult: No Initiate information on smoking cessation: No Living arrangement: At home Marital Status: Living Condition: With spouse/s.o. 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, special education, Business owne Retired: Yes Known occupational exposures/hazards (Current/Previous): None known Service: No Are you following a diet prescribed by a doctor: No Are you following a special diet: No POLST Patient has POLST: Yes POLST Status: Full Code Review of Systems <Ximena Butcher - Last Filed: 07/30/24 15:02> Constitutional Reports: Fatigue, Malaise, Weakness, Night sweats (last few days) and Other (body aches but states this is typical) Eyes Reports: Change in vision (trouble focusing on near objects since hospitalization) Ears, nose, mouth, and throat Reports: Hearing loss (left ear ) and Hearing aids (right ear) Cardiovascular Reports: shortness of breath with exertion (last few days) and Decreased exercise tolerance (last few days) Respiratory Reports: Shortness of breath (last few days) Gastrointestinal Reports: Diarrhea (last night ) Genitourinary Reports: Blood in urine (since hospitalization urine has appeared deep orange then clear ) and Nighttime urination (1-2 times per night ) Musculoskeletal Reports: Joint pain (bilateral hip pain) and Other (pinched nerve in left shoulder ) Neurological Reports: General weakness, Numbness in extremities (slight numbness in bilateral feet), Pre-existing deficit (left facial droop and left sensorineural deafness ), Lack of coordination (recent ataxia) and Memory problems (word searching, losing train of thought ) Endocrine Reports: Fatigue Hematologic/Lymphatic Reports: Easy bruising Allergic/Immunologic Reports: Seasonal allergies <Ximena Butcher Last Filed: 07/30/24 15:02> Prior Level of Functionality: Usually able to complete activities of daily living including driving without assistant activities director. Walking 2 miles per day. Exam <[facility] Last Filed: 07/30/24 15:02> Constitutional Shaky, weak man who is very tired HENMT oral mucous membranes normal Left facial nerve paralysis, atrophy of the anterior left portion of the tongue Eyes PERRL, EOMs intact bilaterally, conjunctivae normal, no scleral icterus, normal visual orellana by confrontation (intact to static finger wiggle) and no nystagmus Neck/C-Spine visual inspection normal, no meningeal signs and thyroid normal (not diffusely enlarged, nontender) thyroid not diffusely enlarged, nontender, lymph nodes not palpabe, nontender Lymph no lymphadenopathy noted (cervical) Chest inspection of chest normal (no notable PMI, no notable heaves) No notable PMI, no notable heaves, bowel sounds clearly heard in chest Respiratory breath sounds equal bilaterally, normal respiratory effort, clear to auscultation bilaterally, no wheezes, no rales, no retractions and no use of accessory muscles Cardiovascular normal heart rate noted, regular rhythm noted, no JVD and no edema pedal pulses 1+ bilaterally normal Gastrointestinal nontender to palpation, nondistended and normoactive bowel sounds Genitourinary bladder normal to palpation Extremities normal to inspection, normal to palpation, no tenderness and full ROM calves are supple and nontender Neurology cranial nerve findings as noted: (left facial nerve paralysis, deaf in left ear ), movement abnormality noted (arms shaky when pulling self up to a seated position ) and speech normal hands and feet intact to light touch, transformation lead strength intact Psychiatry oriented x3 (person, place, event ), thought process normal, cooperative, affect normal and psychomotor activity normal Skin skin color normal, no rash, no ecchymosis noted (small bruise along right flank, bruising along right dorsal surface of hand), no jaundice, nails normal and no alopecia Sepsis Event Note (H) <Ximena Carvalho [facility] Filed: 07/30/24 15:02> Evaluation Current Stage of Sepsis: Resolved (with IV fluids and IV antibiotics ) Conclusion/Plan <Ximena Butcher - Last Filed: 07/30/24 15:02> Problem List (1) Altered mental status: Plan: - Mr. Curiel has been experiencing gradual confusion which acutely worsened this week - He is alert and oriented this evening but reports word searching and trouble following a train of thought - I am suspicious of metastatic disease to his brain after reviewing his chest CT which suggested a right upper lobe mass consistent with primary lung cancer - The patient is also fighting an infection without a known source and was hypoxic in the ER which could also contribute to his altered mental status - Plan to continue with O2 via nasal cannula, IV cefepime twice daily, acetaminophen as needed for fever control - Plan to order brain MRI to assess for further growth of his acoustic neuroma or possible malignancy (2) SIRS (systemic inflammatory response syndrome): Plan: - The patient is currently afebrile and normotensive, his O2 saturation is in the normal range with 2L oxygen administration via nasal cannula - Plan to continue IV cefepime twice daily to treat infection of unknown origin - Awaiting blood culture results (3) Elevated liver enzymes: Plan: - Mr. Curiel does not have a known history of alcohol abuse, NAFLD, or hepatitis - There was an indeterminate foci in the liver on his chest CT - Abdominal ultrasound showed hepatomegaly and a hyperechoic lesion of the right hepatic lobe - My suspicions are raised for hepatitis due to his systemic symptoms, but it is also worth considering malignancy in tandem with the suspicious mass in his lung - Repeat labs ordered for tomorrow to reassess (4) Hypoxia: Plan: - Mr. Curiel is currently on 2L via nasal cannula and is not on oxygen at baseline - Plan to continue to monitor oxygen and decrease oxygen need as appropriate (5) Lung mass: Plan: - Suspicious for malignancy - If the mass in infectious, patient will benefit from current empirical treatment with IV cefepime - Plan to recommend patient meet with an outpatient provider to discuss lung biopsy once medically cleared to discharg (6) Gallstones: Plan: - Discussed with general surgery and concluded there is no evidence of cholecystitis at this time - Patient is not an appropriate candidate for cholecystectomy unless he become symptomatic Lab Results Lab results reviewed: Yes 07/30/24 08:55 07/30/24 08:55 Other Lab Results: I have reviewed the patient's labs. He has increased WBCs and neutrophils which are suggestive of an infection. He has low lymphocytes which can also be suggestive of an infection. He has macrocytic anemia, possibly attributed to a vitamin deficiency but could also be attributed to his levetiracetam or a more insidious source such as cancer. His liver enzymes are elevated without obvious cause. Hepatitis will be considered. Diagnostic Imaging Results Diagnostic Imaging Results: positive Final report reviewed Diagnostic Imaging Results Comments: Head CT 07/27/2024: IMPRESSION: 1. No gross acute intracranial pathology. 2. Postsurgical changes with metallic densities in the hardening artifacts. Chest X-ray(s) 07/27/2024: IMPRESSION: Cardiomegaly and mild congestion. Pulmonary edema. Left basilar atelectasis. No significant pleural effusion or pneumothorax. IMPRESSION: 1. Improved pulmonary edema. 2. Probable right apical lung mass. 3. Left basilar atelectasis. Chest CT 07/27/2024: IMPRESSION: 1. Right upper lobe mass measuring 3.4 cm. Most consistent with primary lung cancer. 2. Enlarged right hilar lymph node. Additional shotty mediastinal lymph nodes. Suspicious for metastatic disease. 3. Right lower lobe pulmonary nodule measuring 0.9 cm. Indeterminate. 4. Indeterminate foci in the liver. These could be further characterized with multiphase liver CT or MRI. PET/CT may be helpful for further evaluation. Recommend biopsy of the right upper lobe mass. Likely amenable with CT guidance. Chest X-ray 07/29/2024: IMPRESSION: 1. Known right upper lobe lung mass and right hilar adenopathy. 2. No gross infiltrates. 3. Atelectasis versus scarring, left lung base. Abdomen Ultrasound 07/29/2024: IMPRESSION: 1.Cholelithiasis without sonographic evidence of acute cholecystitis. 2.Hepatomegaly. Hyperechoic lesion within the right hepatic lobe measuring 2.6 cm, may represent a hemangioma. Recommend follow-up ultrasound in 6 months to assess stability. EKG Results EKG Interpreted Independently: No EKG Findings: Sinus tachycardia RBBB ST elevation secondary to IVCD <Estelita L MD Rahul - Last Filed: 07/30/24 15:12> Problem List (1) Altered mental status: (2) SIRS (systemic inflammatory response syndrome): (3) Elevated liver enzymes: (4) Hypoxia: (5) Lung mass: (6) Gallstones: Core Measures <Ximena Valentinbarbara - Last Filed: 07/30/24 15:02> Anticipated LOS I expect patient to be DC'd or transferred within 96 hours.: Yes DVT/VTE - Prophylaxis VTE/DVT Device ordered at admit?: No VTE/DVT Prophylaxis med ordered at admit?: Yes
[2024-07-29] MEDS: SODIUM CHLORIDE FLUSH 0.9% 10 ML SYRINGE IVP SCH (23:49)
[2024-07-30 09:02] LABS: BASOPHILS # (AUTO) 0.1 10^3/uL (0.0-0.1); BASOPHILS % (AUTO) 0.5 %; EOSINOPHILS # (AUTO) 0.1 10^3/uL (0.0-0.7); EOSINOPHILS % (AUTO) 0.6 %; HCT - HEMATOCRIT 40.5 % (42.0-52.0); HGB - HEMOGLOBIN 12.6 g/dL (14.0-18.0); LYMPHOCYTES # (AUTO) 0.8 10^3/uL (1.5-3.5); LYMPHOCYTES % (AUTO) 6.2 %; MEAN CORPUSCULAR HGB CONC 31.1 g/dL (32.0-36.0); MEAN CORPUSCULAR VOLUME 96.4 fL (80.0-94.0); MEAN PLATELET VOLUME 10.3 fL (7.4-11.4); MONOCYTES # (AUTO) 0.9 10^3/uL (0.0-1.0); MONOCYTES % (AUTO) 7.2 %; NEUTROPHILS # (AUTO) 10.5 10^3/uL (1.5-6.6); NEUTROPHILS % (AUTO) 84.1 %; PLT - PLATELET COUNT 250 10^3/uL (130-450); RED CELL DISTRIBUTION WIDTH 12.5 % (12.0-15.0); WHITE BLOOD COUNT 12.5 x10^3/uL (4.8-10.8)
[2024-07-30 09:16] LABS: ALBUMIN 3.3 g/dL (3.2-5.5); ALBUMIN/GLOBULIN RATIO 1.1 (1.0-2.2); ALKALINE PHOSPHATASE 185 IU/L (42-121); ALT ALANINE AMINOTRANSFERASE 120 IU/L (10-60); AST ASPARTATE AMINOTRANSFERASE 35 IU/L (10-42); BUN - BLOOD UREA NITROGEN 24 mg/dL (6-20); CALCIUM 8.9 mg/dL (8.5-10.3); CARBON DIOXIDE - CO2 27 mmol/L (21-32); CHLORIDE 107 mmol/L (101-111); CREATININE 0.8 mg/dL (0.6-1.3); GFR - MDRD 93 (>89); GLUCOSE 127 mg/dL (74-104); IONIZED CALCIUM IF INDICATED NO; POTASSIUM 3.4 mmol/L (3.5-4.5); SODIUM 141 mmol/L (135-145); TOTAL PROTEIN 6.4 g/dL (6.4-8.9)
[2024-07-30] MEDS: ENOXAPARIN 40 MG/0.4 ML SYRINGE SUBQ SCH (09:33)
[2024-07-30] MEDS: CEFEPIME 2 GM VIAL IVP SCH (11:10)
--- NOTE | 2024-07-30 13:09 | PROVIDER PROGRESS NOTE ---
Documented by User: Ximena Butcher 07/30/24 17:41 Subjective Prog Note Date Prog Note Date: 07/30/24 Prog Note Time: 17:06 Subjective Pt reports feeling: Improved Subjective: Saad is feeling much better today. He still complains of word searching and losing his train of thought. When ambulating to the chair and bathroom he still reports weakness and ataxia favoring his right side. Current Medications Current Medications Current Medications: Current Medications Generic Name Dose Route Start Last Admin Trade Name Freq PRN Reason Stop Dose Admin Acetaminophen 650 mg 07/29/24 18:13 Acetaminophen 325 Mg Tablet PO Q4HR PRN Pain 1 to 4, or Fever Hydrocodone Bitart/Acetaminophen 1 tab 07/29/24 18:13 Hydrocod/Acetam 5/325 Mg Tablet PO Q4HR PRN Pain 5 to 7 Cefepime HCl 2 gm 07/30/24 11:00 07/30/24 11:10 Cefepime 2 Gm Vial IVP 2 gm BID JOSE L Administration Enoxaparin Sodium 40 mg 07/30/24 09:00 07/30/24 09:33 Enoxaparin 40 Mg/0.4 Ml Syringe SUBQ 40 mg DAILY JOSE L Administration Ondansetron HCl 4 mg 07/29/24 18:13 Ondansetron Odt 4 Mg Tablet TL Q6HR PRN Nausea / Vomiting Ondansetron HCl 4 mg 07/29/24 18:13 Ondansetron 4 Mg/2 Ml Vial IVP Q6HR PRN Nausea / Vomiting Sodium Chloride 10 ml 07/29/24 18:13 Sodium Chloride Flush 0.9% 10 Ml Syringe IVP PRN PRN NEEDED PER PROVIDER ORDERS Sodium Chloride 10 ml 07/30/24 01:00 07/30/24 09:34 Sodium Chloride Flush 0.9% 10 Ml Syringe IVP 10 ml 0100,0900,1700 JOSE L Administration Sterile Water 30 ml 07/30/24 11:00 07/30/24 11:10 Water For Injection,Sterile 10 Ml Vial MC 30 ml BID JOSE L Administration Objective Vital Signs/Intake & Output Reviewed Vital Signs: Yes Vital Signs: Vital Signs x48h Temp Pulse Resp BP Pulse Ox O2 Flow Rate 07/30/24 08:07 36.7 C 90 16 139/92 H 96 2 07/30/24 04:43 36.6 C 78 16 126/73 95 Intake & Output: Intake & Output 07/27/24 07/28/24 07/29/24 07/30/24 23:59 23:59 23:59 23:59 Intake Total 2200 / 2200 360 / 360 Output Total 100 / 100 225 / 225 Balance 2099 / 2099 135 / 135 Weight (kg) 90.5 kg 90.5 kg Objective General Appearance: positive No acute distress and Alert (person, place, event, time ) Eyes Bilateral: positive PERRL, EOMI, No scleral icterus and Other (moist membranes) ENT: positive No signs of dehydration Neck: positive No JVD and Trachea midline; negative Lymphadenopathy (R) or Lymphadenopathy (L) Respiratory: positive No respiratory distress and Other (bowel sounds are clearly auscultated in the thoracic region); negative Breath sounds nml (a few scattered crackles bilaterally) Cardiovascular: positive Regular rate & rhythm Abdomen: positive Nml bowel sounds, No distention and Tenderness (mild tenderness in left lower quadrant ) Skin: positive Color nml, Warm and Dry Extremities: positive Non-tender, Full ROM and No pedal edema Neurologic/Psychiatric: positive Oriented x3, Weakness and Facial droop (known history of left facial nerve paralysis ); negative CN's nml (2-12) (history of left facial nerve paralysis, left auditory nerve damage ) Lab Results 07/30/24 08:55 07/30/24 08:55 Other Labs: Lab Results x24hrs 07/30/24 Range/Units 08:55 WBC 12.5 H (4.8-10.8) x10^3/uL RBC 4.20 L (4.70-6.10) 10^6/uL Hgb 12.6 L (14.0-18.0) g/dL Hct 40.5 L (42.0-52.0) % MCV 96.4 H (80.0-94.0) fL MCH 30.0 (27.0-31.0) pg MCHC 31.1 L (32.0-36.0) g/dL RDW 12.5 (12.0-15.0) % Plt Count 250 (130-450) 10^3/uL MPV 10.3 (7.4-11.4) fL Neut # (Auto) 10.5 H (1.5-6.6) 10^3/uL Lymph # (Auto) 0.8 L (1.5-3.5) 10^3/uL [place] # (Auto) 0.9 (0.0-1.0) 10^3/uL Eos # (Auto) 0.1 (0.0-0.7) 10^3/uL Baso # (Auto) 0.1 (0.0-0.1) 10^3/uL Absolute Nucleated RBC 0.00 x10^3/uL Nucleated RBC % 0.0 /100WBC Sodium 141 (135-145) mmol/L Potassium 3.4 L (3.5-4.5) mmol/L Chloride 107 (101-111) mmol/L Carbon Dioxide 27 (21-32) mmol/L Anion Gap 7.0 (6-13) BUN 24 H (6-20) mg/dL Creatinine 0.8 (0.6-1.3) mg/dL Estimated GFR (MDRD) 93 (>89) Glucose 127 H (74-104) mg/dL Calcium 8.9 (8.5-10.3) mg/dL Ionized Calcium NO Total Bilirubin 1.0 (0.2-1.0) mg/dL AST 35 (10-42) IU/L ALT 120 H (10-60) IU/L Alkaline Phosphatase 185 H (42-121) IU/L Total Protein 6.4 (6.4-8.9) g/dL Albumin 3.3 (3.2-5.5) g/dL Globulin 3.1 (2.1-4.2) g/dL Albumin/Globulin Ratio 1.1 (1.0-2.2) Diagnostic Imaging Diagnostic Imaging Results: positive Final report reviewed Diagnostic Imaging Comments: Head CT 07/27/2024: IMPRESSION: 1. No gross acute intracranial pathology. 2. Postsurgical changes with metallic densities in the hardening artifacts. Chest X-ray(s) 07/27/2024: IMPRESSION: Cardiomegaly and mild congestion. Pulmonary edema. Left basilar atelectasis. No significant pleural effusion or pneumothorax. IMPRESSION: 1. Improved pulmonary edema. 2. Probable right apical lung mass. 3. Left basilar atelectasis. Chest CT 07/27/2024: IMPRESSION: 1. Right upper lobe mass measuring 3.4 cm. Most consistent with primary lung cancer. 2. Enlarged right hilar lymph node. Additional shotty mediastinal lymph nodes. Suspicious for metastatic disease. 3. Right lower lobe pulmonary nodule measuring 0.9 cm. Indeterminate. 4. Indeterminate foci in the liver. These could be further characterized with multiphase liver CT or MRI. PET/CT may be helpful for further evaluation. Recommend biopsy of the right upper lobe mass. Likely amenable with CT guidance. Chest X-ray 07/29/2024: IMPRESSION: 1. Known right upper lobe lung mass and right hilar adenopathy. 2. No gross infiltrates. 3. Atelectasis versus scarring, left lung base. Abdomen Ultrasound 07/29/2024: IMPRESSION: 1.Cholelithiasis without sonographic evidence of acute cholecystitis. 2.Hepatomegaly. Hyperechoic lesion within the right hepatic lobe measuring 2.6 cm, may represent a hemangioma. Recommend follow-up ultrasound in 6 months to assess stability. Other Results/Comments Other Results/Comments: I have reviewed the patient's labs. His WBCs and neutrophils are still elevated but trending downward. His lymphocytes remain low but are trending upward. He has macrocytic anemia of unclear origin, differentials include vitamin deficiency, medication side effect, or cancer. His potassium is low which could be explained by decreased oral intake coupled with an episode of diarrhea last night. His BUN remains elevated but his creatinine and GFR have improved. His ALT and Alk Phos are still elevated but trending downward. We are considering hepatitis as a source of his elevated liver enzymes. ABX Reporting Has patient been on IV antibiotics over the past 48 hours?: Yes Sepsis Event Note (H) Evaluation Current Stage of Sepsis: Resolved (with IV fluids and IV antibiotics ) Assessment/Plan Problem List (1) Altered mental status: Impression: - Gradual confusion that acutely worsened this week - Alert and oriented to person, place, time, and event today but reports he is experiencing word searching and trouble following his traing of thought - MRI of brain ordered today to assess for growth of his acoustic neuroma or possible malignancy - I am suspicious of metastatic disease to his brain after reviewing his chest CT which suggested a right upper lobe mass consistent with primary lung cancer - Plan to continue with O2 via nasal cannula to minimize hypoxia which will worsen mental status - Plan to continue IV cefepime twice daily, acetaminophen as needed for fever control (2) SIRS (systemic inflammatory response syndrome): Impression: - The patient is currently afebrile and normotensive, his O2 saturation is in the normal range with 2L oxygen administration via nasal cannula - His WBCs and neutrophils are still elevated but trending downward - Plan to continue IV cefepime twice daily to treat infection of unknown origin - Awaiting finalized blood culture results (3) Elevated liver enzymes: Impression: - His ALT and Alk Phos are still elevated but trending downward - Hepatitis panel ordered to rule-out potential source of infection - I am suspicious of metastatic disease to his liver after reviewing his chest CT which suggested a right upper lobe mass consistent with primary lung cancer - Plan to reorder LFTs in the next few days if patient remains non medically stable (4) Hypoxia: Impression: - Mr. Curiel is currently on 2L via nasal cannula and is not on oxygen at baseline - Plan to continue to monitor oxygen and decrease oxygen use as tolerated (5) Lung mass: Impression: - Suspicious for malignancy - If the mass in infectious, patient will benefit from current empirical treatment with IV cefepime - Plan to recommend patient meet with an outpatient provider to discuss lung biopsy once medically cleared to discharge (6) Gallstones: Impression: - Discussed with general surgery and concluded there is no evidence of cholecystitis at this time - Patient is not an appropriate candidate for cholecystectomy unless he become symptomatic (7) Left lower quadrant abdominal tenderness: Impression: - Patient experienced mild right lower abdomen tenderness to palpation on exam - He did note some diarrhea overnight so this may be due to a slight inflammatory response in his colon secondary to antibiotic use and microbiome changes - Plan to repeat exam tomorrow and continue to monitor patient's bowels Qualifiers: Presence of rebound: absent Qualified Code(s): R10.814 - Left lower quadrant abdominal tenderness Documented by User: Estelita Kay MD 07/30/24 17:42 Objective Lab Results 07/30/24 08:55 07/30/24 08:55 Assessment/Plan Problem List (1) Altered mental status: (2) SIRS (systemic inflammatory response syndrome): (3) Elevated liver enzymes: (4) Hypoxia: (5) Lung mass: (6) Gallstones: (7) Left lower quadrant abdominal tenderness: Qualifiers: Presence of rebound: absent Qualified Code(s): R10.814 - Left lower quadrant abdominal tenderness
[2024-07-30] MEDS: levETIRAcetam 250 MG TABLET PO SCH (14:52)
[2024-07-30 15:28] VITALS: O2SAT 94
[2024-07-30] MEDS: GABAPENTIN 300 MG CAPSULE PO SCH (20:43)
[2024-07-30] MEDS: TIMOLOL 0.5% OPHTH DROPS EACHEYE SCH (20:43)
[2024-07-30] MEDS: SODIUM CHLORIDE FLUSH 0.9% 10 ML SYRINGE IVP PRN (20:44)
--- NOTE | 2024-07-30 20:52 | MRI Report ---
PROCEDURE: MRI Brain WO INDICATIONS: altered mental status, confusion TECHNIQUE: Noncontrast axial T1 spin echo, axial T2 fast spin echo, sagittal and axial FLAIR, coronal T2 fast sp in echo, axial gradient echo, axial diffusion and ADC through the brain. COMPARISON: None. FINDINGS: Image quality: Excellent. CSF Spaces: Basal cisterns are patent. No extra-axial fluid collections. Ventricles are normal in size and shape. Brain: No intracranial masses or hemorrhage. Jara/white matter interface is normal. Brainstem appe ars normal. Diffusion-weighted images demonstrate no acute ischemic insult. No chronic ischemic ins ults. Age-related volume loss and mild small vessel ischemic change. Normal intravascular flow voids are present. Skull and face: Remote left temporal craniotomy. Calvarium has normal marrow signal. Orbits appear normal. Sinuses: Sinuses and mastoids are clear. IMPRESSION: 1. Age-appropriate mild small vessel ischemic change. 2. No acute intracranial process. Reviewed by: Zafar Monk MD on 07/30/2024 8:51 PM PST Approved by: Zafar Monk MD on 07/30/2024 8:51 PM PST Station ID: [id number]
[2024-07-31 04:08] LABS: HBsAG SCREEN Negative (Negative); HCV AB Non Reactive (Non Reactive); HEPATITIS B CORE IGM AB Negative (Negative)
[2024-07-31 05:51] LABS: BASOPHILS # (AUTO) 0.1 10^3/uL (0.0-0.1); EOSINOPHILS # (AUTO) 0.4 10^3/uL (0.0-0.7); EOSINOPHILS % (AUTO) 4.4 %; HCT - HEMATOCRIT 35.5 % (42.0-52.0); HGB - HEMOGLOBIN 11.1 g/dL (14.0-18.0); LYMPHOCYTES # (AUTO) 0.8 10^3/uL (1.5-3.5); LYMPHOCYTES % (AUTO) 9.4 %; MEAN CORPUSCULAR HEMOGLOBIN 30.2 pg (27.0-31.0); MEAN CORPUSCULAR HGB CONC 31.3 g/dL (32.0-36.0); MEAN CORPUSCULAR VOLUME 96.5 fL (80.0-94.0); MEAN PLATELET VOLUME 10.1 fL (7.4-11.4); MONOCYTES # (AUTO) 0.8 10^3/uL (0.0-1.0); MONOCYTES % (AUTO) 8.9 %; NEUTROPHILS # (AUTO) 6.5 10^3/uL (1.5-6.6); NEUTROPHILS % (AUTO) 72.8 %; PLT - PLATELET COUNT 261 10^3/uL (130-450); RED BLOOD COUNT 3.68 10^6/uL (4.70-6.10); RED CELL DISTRIBUTION WIDTH 12.6 % (12.0-15.0); WHITE BLOOD COUNT 8.9 x10^3/uL (4.8-10.8)
[2024-07-31 06:14] LABS: CALCIUM 8.1 mg/dL (8.5-10.3); CREATININE 0.8 mg/dL (0.6-1.3); CRP - C-REACTIVE PROTEIN 8.7 mg/dL (<0.5); POTASSIUM 3.4 mmol/L (3.5-4.5)
[2024-07-31] MEDS ORDERED: POTASSIUM CHLORIDE 20 MEQ TABLET PO ONE (07:41)
[2024-07-31] MEDS: MULTIVITAMIN TABLET PO SCH (08:35)
[2024-07-31] MEDS: PRAVASTATIN 40 MG TABLET PO SCH (08:35)
[2024-07-31] MEDS: POTASSIUM CHLORIDE 20 MEQ TABLET PO SCH (08:35)
[2024-07-31 08:37] VITALS: BP 120/80; TEMP 97.9
--- NOTE | 2024-07-31 12:07 | Discharge Summary ---
Discharge Summary Admit Date: 07/29/24 Discharge Date: 07/31/24 Discharging Provider: Estelita Kay MD Primary Care Provider: Vargas Murphy MD Code Status: Attempt Resuscitation DIAGNOSES Admission Diagnoses: 1. Altered mental status secondary to #2 2. SIRS, suspected infection with no source found 3. Acute respiratory failure with hypoxia 4. Right lung mass 5. Hilar adenopathy 6. History of cochlear implant 7. Abnormal liver enzymes 8. Cholelithiasis without cholecystitis HPI History of Present Illness: Patient has been experiencing generalized weakness, ataxia, generalized malaise, and brain fog. The patient describes the brain fog as word searching and losing his train of thought, which he has been noticing since 06/2024. He does not report any confusion or disorientation. He reports his ataxia is hard to describe, but feels "neurological" and like he is favoring his right side during movement. He reports this has caused some new loss of balance that has gradually been worsening. Recently, he tripped coming up the steps and caught himself. He reports he has lost his balance several other times but was able to catch himself without falling to the ground. 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 the tumor was monitored for years and reached a stable size without growth. Due to the stability of the tumor it has not been followed for the last 8 years. His reports concerns the tumor is growing again. It is worth noting the patient was diagnosed with a pinched nerve in his left shoulder in 05/2024 and placed on gabapentin and methocarbamol. The patient does not note any major side effects from these medications. Prior to this week, the patient was walking approximately 2 miles per day with his , driving, and able to complete activities of daily living without assistance. The patient denies any recent infection, foreign travel, insect bites, rash, recreational or illegal drug use, exposure to prostitution, or history of STD/STIs He was seen in an emergency room with these complaints. Although he was identified as having a fever, and slow to answer questions, he was given fluids, Tylenol, and he defervesced. Seem to recover. A workup for the source of infection was done and he had a negative respiratory PCR, unremarkable UA. He was sent home with oxygen and antibiotics according to the . He then returned to the emergency room because he was not feeling well on July 26. Unfortunately we had no beds and the patient stayed in the emergency room until July 29. Through that stay he was on antibiotics. Continued to have intermittent fevers. Was intermittently confused. being placed in the inpatient status with a hospital bed July 29, and started on cefepime, the patient's fever defervesced. noted an improvement in cognitive ability. His blood cultures were negative from July 26 [address] Brain CT was negative for new acute intracranial pathology. He has postsurgical changes with metallic densities and hardening artifacts. Chest x-ray has mild pulmonary edema, scarring and atelectasis in the left lower lobe. A repeat chest x-ray was done the second day of being in the ER because of worsening hypoxia and pulmonary edema has improved. But now they were seeing a mass in the right lung apex. He had elevation of the left hemidiaphragm. That then led to a chest CT which showed a right upper lobe lobular mass measuring 3.4 x 3 cm. Right lower lobe pulmonary nodule measuring 0.9 cm. He had moderate to severe coronary calcifications, with a right hilar node, subcarinal node, and an AP window node. There is an indeterminate foci in their liver that needs a multiphase liver CT or MRI. In the ER his white cell count was 11.7. By the time we admitted him on July 29 his white cell count was 14.7. CONSULTS | PROCEDURES Procedures: CT of head is without acute gross intra or cranial pathology. Poor surgical changes with metallic densities in the hardening artifacts. First chest x-ray show cardiomegaly and mild congestion, pulmonary edema, left basilar atelectasis. Second chest x-ray shows improved pulmonary edema, probable right apical lung mass, left basilar atelectasis. CT recommended. A third chest x-ray shows known right upper lobe lung mass and right hilar adenopathy. No gross infiltrates. Atelectasis versus scarring of the left lung base. Chest CT with right upper lobe mass measuring 3.4 cm consistent with primary lung cancer. Enlarged right hilar node. Shotty mediastinal lymph nodes. Suspicious for metastatic disease. Right lower lobe pulmonary nodule measuring 0.9 cm. Indeterminate foci in the liver. They need a multiphase liver CT or MRI. Abdominal ultrasound shows cholelithiasis without sonographic evidence of acute cholecystitis. Hepatomegaly. A hyperechoic lesion within the right hepatic lobe measuring 2.6 cm. Recommend follow-up ultrasound or other imaging to assess stability Brain MRI is with age-appropriate mild small vessel ischemic changes. No acute intracranial process. Blood cultures negative from July 26, 2024 without growth after 2 days. Also negative on July 29, 2024 and negative after 2 days. HOSPITAL COURSE Hospital Course: Patient's mentation improved to baseline within 24 hours of empiric antibiotic therapy. and after being placed in the inpatient status with a hospital bed July 29, and started on cefepime. the patient's fever defervesced. noted an improvement in cognitive ability. His blood cultures were negative from July 26 and July 29. His white cell count was 14.7 on July 29 and had gone down to 8.9 on the day of discharge. His last temperature spike was July 27, 1929 9.6. Gradually defervesced to 37.7 on July 28. And once on the inpatient side remained afebrile. Workup to make sure that he did not have any brain infection or brain mets was done. An MRI of the head was negative. The patient continues to need 2 L of nasal cannula for an O2 sat of 94%. On room air he drops below 88% at rest. As such I am discharging the patient on the continued antibiotics he had already prescribed. He will complete Keflex and azithromycin in the outpatient setting. I have already contacted his primary care provider to let them know that the CT of the chest shows probable lung cancer with mets. Patient needs an expeditious referral for CT-guided biopsy, and PET scan. Patient and have already identified [facility] as the cancer center they want to go to. Advance care planning conversation was held with the and patient. They have already completed some preparations for the future. He has a wish to be full code. We filled out a POLST form while he was here and the original was sent home with him. They are already talking about where they need to go if he can no longer be live by himself and he needs 24/7 care. At discharge he is a jovial joking gentleman. His best friend of many decades is at the bedside and there is a lot of snarky comments going on. Temperature 36.6. Heart rate 85. Respirations 20. O2 sat is 94% on 2 L. Blood pressure is 120/80. He already has oxygen at home from his previous encounter and will be using that oxygen at home. He is a lean lanky gentleman whose 5 foot 10 and half inches tall, 90.5 kg. Left facial droop. 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 Shotty adenopathy of the neck but is supple. Clear lungs with no increased respiratory effort. He has egophony of the right mid to right upper lobe. Otherwise lungs are clear. Regular rate and rhythm. Abdomen soft, nontender, normal bowel sounds. He is able go from supine to sitting, sitting to standing with only a standby assist. He uses a walker. Greater than 30 minutes was spent coordinating discharge Addendum on August 01, 2024, 11:23 AM. I spoke to his . She called to speak to me and left her number of [phone]. She says that her has a fever to 102 this morning. He is just sleepy and tired. She gave him a Tylenol and his temperature is now normal.No respiratory distress. No confusion. Just tired. He has not much energy yesterday afternoon when he left the hospital it is a noticeable difference between yesterday and today. Eating and drinking okay. O2 sat is 88 to 89% on 2 L nasal cannula. I have increased his nasal cannula delivery to 3 L. And I have asked her to complete the azithromycin. And changed to a cephalosporin much like we had him here which was cefepime. And I am choosing cefdinir 300 mg p.o. twice daily #14 called into [facility]. This document was made in part using voice recognition software. While efforts are made to proofread this document, sound alike and grammatical errors may occur. ALLERGIES Allergies Allergy/AdvReac Type Severity Reaction Status Date / Time No Known Drug Allergies Allergy Verified 07/29/24 10:45 MEDICATIONS Ambulatory Orders Medication Instructions Recorded Confirmed pravastatin 40 mg tablet 40 mg PO DAILY 07/06/14 08/03/24 aspirin 81 mg tablet,delayed 81 mg PO DAILY 08/03/14 08/03/24 release (Aspir-) levetiracetam 1,000 mg tablet See Rx Instructions .Route 06/19/24 08/03/24 .COMPLEX #180 tabs tadalafil 2.5 mg tablet See Rx Instructions .Route 07/09/24 08/03/24 .COMPLEX #20 tabs cholecalciferol (vitamin D3) 25 25 mcg PO QDAY 07/13/24 08/03/24 mcg (1,000 unit) capsule gabapentin 300 mg capsule 300 mg PO BID 07/13/24 08/03/24 glucosamine HCl 1,500 mg tablet 1,500 mg PO BID 07/13/24 08/03/24 multivitamin 1 tab PO QDAY 07/13/24 08/03/24 timolol maleate 0.5 % once daily 1 drp ophthalmic (eye) BID 07/13/24 08/03/24 eye drops loratadine 10 mg capsule (Allergy 10 mg PO DAILY PRN allergic 07/27/24 08/03/24 Relief (loratadine)) symptoms naproxen sodium 220 mg tablet 220 mg PO TID 07/27/24 08/03/24 (Aleve) albuterol sulfate 90 mcg/actuation 2 puff inhalation QID #8.5 grams 07/28/24 08/03/24 aerosol inhaler (Ventolin HFA) azithromycin 250 mg tablet 250 mg PO DAILY 4 days #4 tabs 07/28/24 08/03/24 (Zithromax) dexamethasone 4 mg tablet 4 mg PO DAILY #7 tabs 07/28/24 08/03/24 cefdinir 300 mg capsule 300 mg PO BID #14 caps 08/01/24 08/03/24 PHYSICAL EXAM AT DISCHARGE General Appearance: positive No acute distress, Alert and Other Physical Exam Other/Comments: Thin lanky elderly gentleman at 90.5 kg, left facial droop. Shotty neck adenopathy. Lungs are clear to auscultation and percussion. Some egophony in the right upper lobe. But no crackles rhonchi or wheezing. No respiratory distress. He is alert and oriented to person, place, time and situation. The lethargy and encephalopathy that was present on admission has gone. He no longer feels like he is lurching to the right. No focal neurological deficits other than the left facial droop that is chronic for him. LABS 07/31/24 05:14 07/31/24 05:14 SEPSIS Current Stage of Sepsis: Resolved (with IV fluids and IV antibiotics ) Discharge Plan Discharge Patient Disposition: Home, Self Care Condition: Fair Medically Cleared Date:: 07/31/24 Prescriptions: New cefdinir 300 mg capsule 300 mg PO BID Qty: 14 0RF Continued levetiracetam 1,000 mg tablet See Rx Instructions .ROUTE .COMPLEX Qty: 180 0RF Dose Instruction: TAKE ONE (1) TABLET BY MOUTH TWICE A DAY Rx Instructions: TAKE ONE (1) TABLET BY MOUTH TWICE A DAY tadalafil 2.5 mg tablet See Rx Instructions .ROUTE .COMPLEX Qty: 20 0RF Dose Instruction: TAKE ONE OR TWO TABLETS BY MOUTH DAILY NEEDED; TAKE 2ND TABLET 1 HOUR AFTER THE 1ST TABLET IF NOT ENOUGH EFFECT Rx Instructions: TAKE ONE OR TWO TABLETS BY MOUTH DAILY NEEDED; TAKE 2ND TABLET 1 HOUR AFTER THE 1ST TABLET IF NOT ENOUGH EFFECT pravastatin 40 MG tablet 40 mg PO DAILY aspirin [Aspir-81] 81 MG tablet,delayed release (DR/EC) 81 mg PO DAILY Allergy Relief (loratadine) 10 mg capsule 10 mg PO DAILY PRN (Reason: allergic symptoms) naproxen sodium [Aleve] 220 mg tablet 220 mg PO TID dexamethasone 4 mg tablet 4 mg PO DAILY Qty: 7 0RF albuterol sulfate [Ventolin HFA] 90 mcg/actuation HFA aerosol inhaler 2 puff inhalation QID Qty: 8.5 2RF azithromycin [Zithromax] 250 mg tablet 250 mg PO DAILY 4 Days Qty: 4 0RF Rx Instructions: start on day 2 of therapy timolol maleate 0.5 % drops, once daily 1 drp ophthalmic (eye) BID multivitamin Tablet 1 tab PO QDAY cholecalciferol (vitamin D3) 25 mcg (1,000 unit) capsule 25 mcg PO QDAY glucosamine HCl 1,500 mg tablet 1,500 mg PO BID Rx Instructions: administer with a meal gabapentin 300 mg capsule 300 mg PO BID Activity Restrictions: Activity as Tolerated Diet: Regular Health Concerns: You have been feeling tired and fatigued for a few weeks now. May be as far back as Thanksgiving. You just felt like you did not have as much endurance as you usually do. But that was getting gradually worse until the week before you were admitted you were complaining of generalized weakness, and felt like you were lurching to the right without any reason, and feeling like you are in a brain fog. You were seen in the emergency room for this. They gave you antibiotics and went home. But you continue to worsen and call Dr. Noriega who had to come back to the emergency room. Unfortunately we have no beds. And you needed to wait until July 29 in the emergency room. We identified you was having a fever, confusion from the fever, and findings of lung inflammation. But we cannot clearly say that you had a pneumonia. But you did respond to antibiotics. You did not have a urinary tract infection, and your MRI of the brain was what we expected in a patient who has an implant for cochlear disease. You responded to the antibiotics and became clearheaded. You still need oxygen. Unfortunately the evaluation did not show you to have probable lung cancer with lymph nodes that are already positive. We are not sure until you get a biopsy. Instructions for discharge at home: 1. Please see your primary care provider, Dr. Murphy, in follow-up. He needs to refer you for a CT-guided lung biopsy as well as a CT PET. I have already contacted Dr. Murphy and let him know that to do these referrals [facility]. 2. Finish the antibiotics that were given to you. Those were Keflex and azithromycin. You had those before you even came into the hospital. 3. You will be discharged on oxygen. You need 2 L nasal cannula to keep your oxygen levels above the 89% cutoff point. Print Language: Kazakh Patient Instructions: Biopsy Lung CT Guided Lung, PET Scan Follow-up Care: Vargas Murphy MD [Provider Admit Priv/Credential] -
== END 2024-07-31 12:40 | disposition home or self-care (01) | DRG 871 ==
LOC: ED 10:34 → MS2 17:15
PROVIDERS: ADMIT Specialist; ATTEND Specialist
DX: R74.01 Elevation of levels of liver transaminase levels; R59.0 Localized enlarged lymph nodes; E78.00 Pure hypercholesterolemia, unspecified; R79.89 Other specified abnormal findings of blood chemistry; J96.01 Acute respiratory failure with hypoxia; R74.8 Abnormal levels of other serum enzymes; K80.20 Calculus of gallbladder without cholecystitis without obstruction; E80.6 Other disorders of bilirubin metabolism; Z79.899 Other long term (current) drug therapy; R50.9 Fever, unspecified; R10.814 Left lower quadrant abdominal tenderness; R53.1 Weakness; C34.11 Malignant neoplasm of upper lobe, right bronchus or lung; R19.7 Diarrhea, unspecified; Z80.1 Family history of malignant neoplasm of trachea, bronchus and lung; G58.8 Other specified mononeuropathies; D33.3 Benign neoplasm of cranial nerves; D72.829 Elevated white blood cell count, unspecified; Z79.82 Long term (current) use of aspirin; G93.40 Encephalopathy, unspecified; R91.8 Other nonspecific abnormal finding of lung field; R09.02 Hypoxemia; A41.9 Sepsis, unspecified organism; C79.9 Secondary malignant neoplasm of unspecified site; R27.0 Ataxia, unspecified; G51.0 Bell's palsy